=== PATIENT | male | born 1985 | race Caucasian/White ===

== ENCOUNTER 2020-07-07 09:31 | Emergency (ER) | payer SELFPAY ==
[~2020-07-07] VITALS: Ht 177.8 cm; Wt 91.0 kg
[2020-07-07 09:36] VITALS: BP 113/82
== END 2020-07-07 10:08 | disposition home or self-care (01) ==
LOC: ER 09:31
DX: H60.92 Unspecified otitis externa, left ear (principal); Z98.890 Other specified postprocedural states
CPT/HCPCS: 99283

== ENCOUNTER 2020-07-08 00:20 | Emergency (ER) | payer SELFPAY ==
[~2020-07-08] VITALS: Ht 177.8 cm; Wt 91.0 kg
[2020-07-08 03:25] VITALS: BP 125/72
== END 2020-07-08 03:26 | disposition home or self-care (01) ==
LOC: ER 00:55
DX: H60.92 Unspecified otitis externa, left ear (principal); F41.9 Anxiety disorder, unspecified
CPT/HCPCS: 99282